=== PATIENT | female | born 1980 | race Caucasian/White ===

== ENCOUNTER 2019-03-19 04:36 | Emergency (ER) | payer OTHER ==
[2019-03-19 04:56] VITALS: RESP 20
[2019-03-19] MEDS ORDERED: DIPHENHYDRAMINE 50 MG/ML SOL IV ONE (05:01)
[2019-03-19] MEDS ORDERED: SOLUMEDROL 125 MG/2 ML 125 MG/2 ML PDS IV ONE (05:01)
[2019-03-19] MEDS ORDERED: SODIUM CHLORIDE 0.9% 500 ML 500 ML IV ONE (05:02)
[2019-03-19] MEDS ORDERED: DIPHENHYDRAMINE 50 MG/ML SOL ONE (05:06)
[2019-03-19] MEDS ORDERED: SOLUMEDROL 125 MG/2 ML 125 MG/2 ML PDS ONE (05:06)
[2019-03-19 05:44] VITALS: TEMP 97
[2019-03-19 05:45] VITALS: O2SAT 100
[2019-03-19 06:01] VITALS: BP 134/90; PULSE 114
== END 2019-03-19 05:55 | disposition home or self-care (01) | DRG 607 ==
LOC: ED 04:36
DX: L50.0 Allergic urticaria (principal)
CPT/HCPCS: 96365; 96374; 96375; 99282; 99284; J1200; J2930